=== PATIENT | female | born 1990 | race Caucasian/White ===

== ENCOUNTER 2021-07-12 17:11 | Outpatient (REF) | payer MEDICAID, SELFPAY ==
--- NOTE | ~2021-07-12 | XR_ITS ---
EXAMINATION: XR CHEST CLINICAL INFORMATION: Flu COMPARISON: None TECHNIQUE: 2 views of the chest were obtained. FINDINGS: No significant abnormality is noted involving the heart, lungs, mediastinum, bony thorax or soft tissues. XR/XR chest 2V IMPRESSION: Unremarkable examination.
== END 2021-07-12 17:12 | disposition home or self-care (01) ==
LOC: HO.XRAY 17:11
PROVIDERS: Absent Provider Internal Medicine; PCP Internal Medicine; Visit Provider Internal Medicine
DX: J11.1 Influenza due to unidentified influenza virus with other respiratory manifestations (principal)
CPT/HCPCS: 71046

== ENCOUNTER 2023-04-03 19:42 | Outpatient (REF) | payer MEDICAID, SELFPAY | END 2023-04-03 19:43 | disposition home or self-care (01) | LOC: HO.HHCLNP 19:42 | PROVIDERS: Visit Provider Emergency Medicine | DX: L02.01 Cutaneous abscess of face (principal) | CPT/HCPCS: 87070; 87205 ==

== ENCOUNTER 2023-04-06 12:50 | Outpatient (AMB) | payer MEDICAID, SELFPAY ==
--- NOTE | 2023-04-06 13:05 | A.OFFVIS_ITS ---
Intake Vital Signs 04/06/23 13:15 Height 5 ft 5 in Weight 150 lb 8 oz BMI 25.0 BP 130/77 Blood Pressure Location Lt brachial Position Sitting Pulse 101 H Intake Visit Reasons: abscess external right cheek Intake Note: went to ED at [facility] 03/30/23, then went to [facility] and had a culture done, still has not received the results, states wound has gone down compare to before, pain radiates to the ear, currently on antibiotics Industrial Engineering Analyst Required: Yes Accompanied by: Self / Same As Patient Allergies seafood Allergy (Unknown, Uncoded 04/06/23 13:12) Swelling Medication List - Last Reconciled 04/06/23 by Iron Arellano MD atenolol 50 mg PO QAM blood sugar diagnostic (FreeStyle Lite Strips) As directed doxycycline hyclate 100 mg PO BID glipizide ER 5 mg PO QAM ibuprofen 600 mg PO Q8H lancets (FreeStyle Lancets) As directed lisinopril 20 mg PO QAM PNV,calcium [id number] acid 27 mg iron- 1 mg ( Vitamins Plus Low Iron) 1 tab PO DAILY simvastatin 40 mg PO BEDTIME HPI abscess external right cheek 2 HPI Details 32F referred for an abscess on the right cheek. She says she had an area of pain and swelling on the right cheek towards the ear last week. She was started on oral antibiotics. This eventually drained spontaneously. Cultures were done last Thursday and she was referred to me to have this checked for possible I&D or excision She says that she feels much better. She denies any drainage anymore no significant pain. She says she is still on oral antibiotics. She admits to being a diabetic but says she has good blood sugar control. [facility] Medical History (Updated 04/06/23 @ 13:59 by Iron Arellano MD) Abscess of right external cheek Hypertension Diabetes mellitus Social History (Updated 04/06/23 @ 13:14 by MELISSA Brooks) Alcohol intake: never Patient Tobacco Use Status: Never used Tobacco Review of Systems Const Denies chills and Denies fever(s) Card Denies chest pain, Denies dyspnea and Denies dyspnea on exertion Resp Denies cough, Denies dyspnea and Denies dyspnea on exertion GI Denies hematochezia and Denies change in bowel habits Denies hematuria Musc Denies back pain and Denies limited range of motion Neuro Denies focal weakness and Denies convulsions Psych Denies depression and Denies mood swings Physical Exam Vital Signs: Last Vital Signs Pulse 101 H 04/06/23 13:15 BP 130/77 04/06/23 13:15 BMI result Body Mass Index 25.0 Const General: comfortable and no acute distress Orientation/consciousness: patient oriented x3 HEENT Other: On the right cheek near the auricular area is note of small induration, with no fluctuance, no tenderness, no cellulitis, no active discharge Neck Neck: Yes no lymphadenopathy Resp Auscultation: clear to auscultation bilaterally Cardio Rhythm: regular rhythm GI Palpation (GI): Soft to palpation, nontender and no guarding Neuro General: patient oriented x3 Assessment & Plan Assessment & Plan (1) Abscess of right external cheek: Code(s): L02.01 - Cutaneous abscess of face Plan: She had an abscess on the right cheek that appears to have had drained spontaneously. Currently, there is no significant drainage or fluctuance. There is very minimal residual induration She is still on antibiotics. I told her to complete this course. I instructed to do warm compresses to the area. I did tell her that if she has recurrence or worsening, she should come back to the office to be re-evaluated for possible I&D. She is comfortable with the plan. Coding Level of Care Code New Pt Level 3 (78145) Diagnoses Abscess of right external cheek L02.01
[2023-04-06 13:15] VITALS: BP 130/77; PULSE 101; BMI 25.0
== END 2023-04-06 13:45 | disposition home or self-care (01) ==
PROVIDERS: PCP Internal Medicine; Referring Provider Internal Medicine; Visit Provider Surgery
DX: L02.01 Cutaneous abscess of face (principal)
CPT/HCPCS: 99203

== ENCOUNTER → 2023-04-06 12:50 | Outpatient (BNVA) | payer MEDICAID, SELFPAY | PROVIDERS: PCP Internal Medicine; Referring Provider Internal Medicine; Visit Provider Surgery | DX: L02.01 Cutaneous abscess of face (principal); Z79.2 Long term (current) use of antibiotics | CPT/HCPCS: 99202 ==

== ENCOUNTER 2024-02-12 16:19 | Emergency (ER) | payer MEDICAID, SELFPAY ==
--- NOTE | 2024-02-12 | ECG_ITS ---
Test Reason : CHEST PAIN Blood Pressure : / mmHG Vent. Rate : 090 BPM Atrial Rate : 090 BPM P-R Int : 146 ms QRS Dur : 080 ms QT Int : 342 ms P-R-T Axes : 042 030 -01 degrees QTc Int : 418 ms Normal sinus rhythm Cannot rule out Anterior infarct , age undetermined ; could be related to body habitus and lead placement Abnormal ECG No previous ECGs available Referred By: Generic ED Physician Electronically Signed By:MADDISON AUGUSTE
[2024-02-12 16:33] VITALS: BP 134/74; BP 145/92; PULSE 115; PULSE 92; RESP 15; TEMP 36.6; O2SAT 100; O2SAT 99; BMI 27.0
--- NOTE | 2024-02-12 17:04 | ED_ITS ---
HPI - Chest Pain General Chief Complaint: Chest Pain Stated Complaint: CP Time Seen by Provider: 02/12/24 16:24 Source: patient, RN notes reviewed and old records reviewed Mode of arrival: ambulatory Limitations: no limitations History of Present Illness ED Provider: Adan MAGAÑA narrative: 33-year-old female with past medical history significant for hypertension, diabetes presents for evaluation of left-sided chest pain. Patient reports that she has had a dull left-sided chest pain for the last 3 weeks. The pain tends to be worse when she wakes up in the morning Currently her pain is dull, 6/10 Her pain is better with rest and worse with movement. She describes the pain as a ?soreness. ? Denies any fevers, chills, cough, shortness of breath, palpitations Denies any leg swelling. No other complaints or concerns at this time Related Data Home Medications ?Medication ?Instructions ?Recorded ?Confirmed atenolol 50 mg tablet 50 mg PO QAM 04/06/23 04/06/23 blood sugar diagnostic (FreeStyle #10 ea 04/06/23 04/06/23 Lite Strips) doxycycline hyclate 100 mg capsule 100 mg PO BID 04/06/23 04/06/23 glipizide 5 mg tablet, extended 5 mg PO QAM 04/06/23 04/06/23 release 24 hr ibuprofen 600 mg tablet 600 mg PO Q8H 04/06/23 04/06/23 lancets 28 gauge (FreeStyle #100 ea 04/06/23 04/06/23 Lancets) lisinopril 20 mg tablet 20 mg PO QAM 04/06/23 04/06/23 vitamin with calcium 1 tab PO DAILY 04/06/23 04/06/23 no.72-iron 27 mg-folic acid 1 mg tablet ( Vitamins Plus Low Iron) simvastatin 40 mg tablet 40 mg PO BEDTIME 04/06/23 04/06/23 Allergies Allergy/AdvReac Type Severity Reaction Status Date / Time seafood Allergy Unknown Swelling Uncoded 02/12/24 16:36 Review of Systems 2 Constitutional: Constitutional: Denies body ache(s), Denies chills, Denies fever(s) and Denies headache(s) Eyes: Eyes: Denies blurry vision ENT: Denies headache(s) Cardiovascular: Cardiovascular: Reports chest pain, Reports chest pain at rest, Reports chest pain with activity and Denies dyspnea Respiratory: Respiratory: Denies cough and Denies dyspnea Gastrointestinal: Gastrointestinal: Denies abdominal pain, Denies nausea and Denies vomiting Musculoskeletal: Musculoskeletal: Denies back pain Integumentary/Breasts: Skin/Breast: Denies rash Neurologic: Denies headache(s) [facility] Past Medical History Medical History (Updated 02/12/24 @ 17:45 by Toney Arellano) Abscess of right external cheek Hypertension Diabetes mellitus Social History Social History (Updated 04/06/23 @ 13:14 by MELISSA Brooks) Alcohol intake: never Patient Tobacco Use Status: Never used Tobacco Advance Directives: No Advance Directives Information Provided: No Do you have a plan to hurt others: No Plan Patient : No Physical Exam 2 Vital Signs: Vital Signs: Last Vital Signs Temp 97.9 F 02/12/24 16:33 Pulse 92 02/12/24 16:33 Resp 15 02/12/24 16:33 BP 134/74 02/12/24 16:33 Pulse Ox 100 02/12/24 16:33 O2 Del Method Room Air 02/12/24 16:33 BMI result Body Mass Index 27.0 Const: General: healthy appearing, comfortable, no acute distress, alert and awake Nutritional Appearance: well nourished Orientation/consciousness: p atient oriented x3 HEENT: Head: Yes normocephalic and Yes atraumatic Throat: Yes posterior oropharynx normal Eyes: Eyelids: Yes eyelids normal Conjunctivae: conjunctivae normal S clerae: sclerae normal Corneas: corneas normal Pupils: Equal, round and reactive pupils present EOM: EOMs intact bilaterally Neck: Neck: Yes full ROM Chest: Other: There is some tenderness palpation left chest wall without crepitus Resp: Effort & Inspection: normal respiratory effort, able to speak in complete sentences, no audible wheezes and not labored Auscultation: clear to auscultation bilaterally Cardio: Rate: regular rate Rhythm: regular rhythm GI: Inspection: No distended Palpation (GI): Soft to palpation, not firm, nontender, no guarding and not rigid Skin: General skin exam: elasticity normal Neuro: General: patient oriented x3 Cranial nerves: Yes Equal, round and reactive pupils present and Yes Bilaterally intact EOM present Cognition (Neuro): normal cognition Course Reevaluation(s) Reevaluation #1: Patient's heart score is a 1 for risk factors only. Her workup is negative, she rules out for ACS. The patient is stable for discharge at this time Time: 17:44 Medical Decision Making Medical Decision Making [facility] Narrative: 33-year-old female presents for evaluation of chest pain. Her risk factors for ACS include hypertension, diabetes though she is young. EKG is nonischemic. Plan for labs. She has no respiratory symptoms, lungs are clear to auscultation, vital signs are stable. I doubt pulmonary cause of her chest pain. Given the her pain has been present for 3 weeks, it is likely atypical chest pain Differential Diagnosis Differential Diagnoses: The differential diagnosis associated with the presentation includes Chest pain Chest wall pain Costochondritis ACS Lab Data [facility] Lab Attestation statement: I reviewed the patient's lab results. No leukocytosis or anemia. Normal platelet count. No electrolyte abnormalities. Troponin undetectable. The patient is not 02/12/24 17:09 02/12/24 17:09 Labs: Lab Results 02/12/24 Range/Units 17:09 WBC 9.8 (4.8-10.8) X10*3/uL RBC 4.89 (4.20-5.50) X10*6/uL Hgb 13.9 (12.0-16.0) g/dl Hct 41.6 (37.0-47.0) % MCV 85.1 (80.0-98.0) fL MCH 28.4 (27.0-33.0) pg MCHC 33.4 (31.0-35.0) g/dl RDW 12.3 (11.0-16.0) % Plt Count 350 (160-400) X10*3/uL MPV 9.3 L (9.4-12.3) fL Immature Gran % (Auto) 0.4 (0.0-0.4) % Neut % (Auto) 57.3 (45-73) % Lymph % (Auto) 33.3 (20-40) % [place] % (Auto) 5.7 (2-11) % Eos % (Auto) 2.6 (0-4) % Baso % (Auto) 0.7 (0-2) % Lymph # (Auto) 3.3 (1.2-4.9) X10*3/uL [place] # (Auto) 0.6 (0.1-1.2) X10*3/uL Eos # (Auto) 0.3 (0.0-0.4) X10*3/uL Baso # (Auto) 0.1 (0.0-0.2) X10*3/uL Abs Immat Gran (auto) 0.04 H (0.00-0.03) X10*3/uL Absolute Neuts (auto) 5.6 (2.0-8.3) x10*3/uL Absolute Nucleated RBC 0.000 (0.0-0.012) X10*3/uL Nucleated RBC % (auto) 0.0 (0.0-0.2) /100WBC PT 11.6 (10.9-12.4) SEC INR 1.0 (0.9-1.1) Sodium 141 (135-145) mmol/L Potassium 3.4 (3.3-5.1) mmol/L Chloride 106 (96-108) mmol/L Carbon Dioxide 22 (22-29) mmol/L Anion Gap 16 (12-20) BUN 9 (9-16) mg/dL Creatinine 0.66 (0.5-1.4) mg/dL Estim Creat Clear Calc 120.5 Estimated GFR > 60 Random Glucose 126 H (60-115) mg/dL Calcium 9.4 (8.4-10.2) mg/dL Total Bilirubin 0.3 (0.0-1.0) mg/dL AST 17 (5-31) U/L ALT 24 (0-31) U/L Alkaline Phosphatase 46 (39-117) U/L Troponin I High Sens < 2.7 (<3.5-17.0) ng/L Total Protein 7.9 (6.5-8.0) g/dL Albumin 4.4 (3.5-5.0) g/dL Lipase 29 (8-78) U/L Beta HCG, Quant < 2 mIU/mL Independent Interpretation I performed an independent interpretation of an: EKG Interpretation: Normal sinus rhythm with a rate of [address] segment elevations or depressions. Discharge Plan Discharge Clinical Impression: Atypical chest pain Patient Disposition: Home, Self-Care Instructions: Chest Pain (ED) Additional Instructions: Your workup in the ER today was reassuring. This includes your blood work, your EKG. You may use ibuprofen/Tylenol as needed for any further pain. Follow-up with your primary doctor, return for new or worsening symptoms Prescriptions: No Action doxycycline hyclate 100 mg capsule 100 mg PO BID glipizide 5 mg tablet extended release 24hr 5 mg PO QAM Vitamin Plus Low Iron 27 mg iron- 1 mg tablet 1 tab PO DAILY atenolol 50 mg tablet 50 mg PO QAM simvastatin 40 mg tablet 40 mg PO BEDTIME lisinopril 20 mg tablet 20 mg PO QAM (DME) FreeStyle Lite Strips Strip See Rx Instructions .ROUTE BID Qty: 10 Rx Instructions: As directed (DME) lancets [FreeStyle Lancets] 28 gauge misc See Rx Instructions .ROUTE BID Qty: 100 Rx Instructions: As directed ibuprofen 600 mg tablet 600 mg PO Q8H Print Language: Swedish
[2024-02-12 17:17] LABS: MANUAL DIFF FLAG NO
[2024-02-12 17:30] LABS: Basophils Absolute Auto 0.1 X10*3/uL (0.0-0.2); Basophils Percent Auto 0.7 % (0-2); Eosinophils Absolute Auto 0.3 X10*3/uL (0.0-0.4); Eosinophils Percent Auto 2.6 % (0-4); Hematocrit 41.6 % (37.0-47.0); Hemoglobin 13.9 g/dl (12.0-16.0); Imm Gran Abs Auto 0.04 X10*3/uL (0.00-0.03); Imm Gran Pct Auto 0.4 % (0.0-0.4); Lymphocytes Absolute Auto 3.3 X10*3/uL (1.2-4.9); Lymphocytes Percent Auto 33.3 % (20-40); Mean Corpuscular HGB Conc 33.4 g/dl (31.0-35.0); Mean Corpuscular Hemoglobin 28.4 pg (27.0-33.0); Mean Corpuscular Volume 85.1 fL (80.0-98.0); Mean Platelet Volume 9.3 fL (9.4-12.3); Monocytes Absolute Auto 0.6 X10*3/uL (0.1-1.2); Monocytes Percent Auto 5.7 % (2-11); Neutrophils Absolute Auto 5.6 x10*3/uL (2.0-8.3); Neutrophils Percent Auto 57.3 % (45-73); Platelet Count 350 X10*3/uL (160-400); Red Blood Count 4.89 X10*6/uL (4.20-5.50); Red Cell Distribution Width 12.3 % (11.0-16.0); White Blood Count 9.8 X10*3/uL (4.8-10.8)
[2024-02-12 17:34] LABS: Alanine Aminotransferase 24 U/L (0-31); Albumin Level 4.4 g/dL (3.5-5.0); Alkaline Phosphatase 46 U/L (39-117); Anion Gap 16 (12-20); Aspartate Amino Transferase 17 U/L (5-31); Bilirubin Total 0.3 mg/dL (0.0-1.0); Blood Urea Nitrogen 9 mg/dL (9-16); Calcium 9.4 mg/dL (8.4-10.2); Carbon Dioxide 22 mmol/L (22-29); Chloride 106 mmol/L (96-108); Creatinine Clr Calc Pharmacy 120.5; Estimated Glomerular Filt Rate > 60; Glucose Random 126 mg/dL (60-115); Lipase 29 U/L (8-78); Potassium 3.4 mmol/L (3.3-5.1); Sodium 141 mmol/L (135-145); Total Protein 7.9 g/dL (6.5-8.0)
[2024-02-12 17:38] LABS: Prothrombin Time 11.6 SEC (10.9-12.4)
[2024-02-12 17:42] LABS: HCG Quantitative < 2 mIU/mL; Troponin-I High Sensitivity < 2.7 ng/L (<3.5-17.0)
[2024-02-12 17:55] VITALS: BP 135/79; PULSE 88; RESP 18; TEMP 36.4; O2SAT 100
== END 2024-02-12 17:56 | disposition home or self-care (01) ==
PROVIDERS: Physician Assistant; Emergency Provider Emergency Medicine; PCP Internal Medicine
DX: R07.89 Other chest pain (principal); I10 Essential (primary) hypertension; E11.9 Type 2 diabetes mellitus without complications; Z79.899 Other long term (current) drug therapy
CPT/HCPCS: 36415; 80053; 83690; 84484; 84702; 85025; 85610; 93005; 99283; 99285

== ENCOUNTER → 2024-02-12 16:32 | Outpatient (BNV) | payer MEDICAID, SELFPAY | PROVIDERS: Emergency Provider Emergency Medicine; PCP Internal Medicine; Visit Provider Internal Medicine | DX: R94.31 Abnormal electrocardiogram [ECG] [EKG] (principal) | CPT/HCPCS: 93010 ==

== ENCOUNTER 2024-04-11 13:33 | Outpatient (REF) | payer MEDICAID, SELFPAY ==
[2024-04-11 14:47] LABS: Alanine Aminotransferase 26 U/L (0-31); Albumin Level 4.3 g/dL (3.5-5.0); Alkaline Phosphatase 53 U/L (39-117); Anion Gap 13 (12-20); Aspartate Amino Transferase 25 U/L (5-31); Bilirubin Total 0.3 mg/dL (0.0-1.0); Blood Urea Nitrogen 8 mg/dL (9-16); Calcium 9.7 mg/dL (8.4-10.2); Carbon Dioxide 25 mmol/L (22-29); Chloride 104 mmol/L (96-108); Cholesterol 240 mg/dL (<200); Estimated Glomerular Filt Rate > 60; Glucose Random 147 mg/dL (60-115); HDL Cholesterol 47 mg/dL (>40); LDL Cholesterol Calculated 143 mg/dL (<100); Sodium 138 mmol/L (135-145); Triglycerides 251 mg/dL (<150)
== END 2024-04-11 13:34 | disposition home or self-care (01) ==
LOC: HO.CHCLDS 13:33
PROVIDERS: Visit Provider Internal Medicine
DX: I10 Essential (primary) hypertension (principal); E08.59 Diabetes mellitus due to underlying condition with other circulatory complications
CPT/HCPCS: 36415; 80053; 80061

== ENCOUNTER 2024-11-14 10:30 | Outpatient (REF) | payer MEDICAID, SELFPAY ==
--- OUTSIDE RECORDS SUMMARY | 2024-11-14 11:33 | XMS_ITS | Clinical Summary ---
Author Organization [facility] Address [address] [place] [address] Phone Care Team Providers Care Registered Nurse Maternity Name Role Phone Physician, Pcp Unknown Primary Care Provider Nika vailable Allergies Active Allergy Reactions Criticality Noted Date Comments Fish Containing Products 04/21/2024 Fish Derived 04/21/2024 Pneumococcal Vaccine Headache,Rash,Nause a And Vomiting Low 07/31/2023 3 days post vaccine, pt came to [facility] with localized swelling, rash over injection site and itchiness She reported n/v and headache. No resp s/s Shellfish Containing Products 04/21/2024 Medications methocarbamoL (ROBAXIN) 750 mg tablet Take 1 tablet (750 mg total) by mouth 4 (four) times a day. 12 each 10/17/2024 Active cephalexin (KEFLEX) 500 mg capsule Take 1 capsule (500 mg total) by mouth 2 (two) times a day for 7 days. 14 each 10/17/2024 10/25/19 25 Active Problems No known active problems Encounters Date Type Department Care Team Description 10/17/2024 7:13 AM EDT - 10/17/2024 9:37 AM EDT Emergency [facility] Emergency [address] [place] [address] Strain of lumbar region, initial encounter (Primary Dx); Urinary tract infection with hematuria, site unspecified Discharge Disposition: Home or Self Care from Last 3 Months Immunizations Name Administration Dates Next Due Tdap Tetanus diptheria acell ular pertussis (Boostrix; Adacel) 7yo and older 04/22/2024 Medical History Medical History Date Comments Diabetes ([facility] V24, [facility] V28) Hypertension Social History Tobacco Use Types Packs/Day Years Used Date Smoking Tobacco: Never Assessed Comments Unknown Sex and Gender Information Value Date Recorded Sex Assigned at Not on file Legal Sex Female 4:36 AM EST Gender Identity Not on file Sexual Orientation Not on file Obstetrics History Last Filed Vital Signs Vital Sign Reading Time Taken Comments Blood Pressure 120/80 10/17/2024 6:31 AM EDT Pulse 82 10/17/2024 6:31 AM EDT Temperature 37 C (98.6 F) 10/17/2024 6:31 AM EDT Respiratory Rate 18 10/17/2024 6:31 AM EDT Oxygen Saturation 98% 10/17/2024 6:31 AM EDT Inhaled Oxygen Concentration - - Weight 72.6 kg (160 lb) 10/16/2024 11:31 PM EDT Height 165.1 cm (5' 5 ) 10/16/2024 11:31 PM EDT Body Mass Index 26.63 10/16/2024 11:31 PM EDT Plan of Treatment Health Maintenance Due Date Last Done Comments Diabetes: Annual Foot Exam 1999 Diabetes: Annual Retina Eye Exam 1999 Hepatitis A Vaccines (1 of 2 - Risk 2-dose series) 2008 Hepatitis B Vaccines (1 of 3 - 19+ 3-dose series) 2008 Cervical Cancer Screening: P ap Smear 2010 COVID-19 Vaccine (2023-2 5 season) 2023 Diabetes: Annual Urine Albumin-Creatinine Ratio (uACR) 04/22/2024 HIV Screening 04/22/2024 Hepatitis C Screening 04/22/2024 Social Influencers of Health Screening 04/22/2024 Depression Screening 04/27/2024 Influenza Vaccine (#1) 2024 6, 01/27/2013, 03/24/2012 Diabetes: Blood Sugar Contro l Test (HGBA1C) 03/17/2025 09/14/2024, 07/28/2023 Diabetes: Annual GFR (Glomerular Filtration Rate) 10/17/2025 10/17/2024, 04/11/2024 Hypertension/CHF/CAD Annual BMP Blood Test 10/17/2025 10/17/2024, 04/11/2024 Cholesterol Screening (Lipid Panel) 04/11/2029 04/11/2024 DTaP,Tdap,and Td Vaccines (3 - Td or Tdap) 04/22/2034 04/22/2024, 01/27/2013 Pneumococcal Vaccine: Pediatrics (0 to 5 Years) and At-Risk Patients (6 to 49 Years) Completed 07/28/2023 HIB Vaccines Aged Out No longer eligi ble based on patient's age to complete this topic HPV Vaccines Aged Out No longer eligi ble based on patient's age to complete this topic IPV Vaccines Aged Out No longer eligi ble based on patient's age to complete this topic MMR Vaccines Aged Out No longer eligi ble based on patient's age to complete this topic Meningococcal ACWY Vaccine Aged Out N o longer eligible based on patient's age to complete this topic Meningococcal B Vaccine Aged Out No l onger eligible based on patient's age to complete this topic RSV Immunization Patients Under 20 months Aged Out No longer eligible b ased on patient's age to complete this topic Varicella Vaccines Aged Out No longer eligible based on patient's age to complete this topic Procedures Procedure Name Priority Date/Time Associated Diagnosis Comments LINDSEY URINE CULTURE TUBE STAT 10/17/2024 7:22 AM EDT URINALYSIS WITH REFLEX MICROSCOPIC AND CULTURE STAT 10/17/2024 7:22 AM EDT URINALYSIS WITH REFLEX MICROSCOPIC AND CULTURE STAT 10/17/2024 7:22 AM EDT CULTURE URINE STAT 10/17/2024 7:22 AM EDT CBC WITH AUTO DIFFERENTIAL STAT 10/17/2024 1:26 AM EDT COMPREHENSIVE METABOLIC PANEL STAT 10/17/2024 1:26 AM EDT CBC AND DIFFERENTIAL STAT 10/17/2024 1:26 AM EDT from Last 3 Months Results * (ABNORMAL) Urinalysis with reflex microscopic and culture (10/17/2024 7:22 AM EDT) Specific [place] Urine 1.027 1.003 - 1.030 LAB URINALYSIS - AUTOMATED METHOD 10/17/2024 8:22 AM [facility] pH, Urine 5.5 5.0 - 8.0 pH LAB URINALYSIS - AUTOMATED METHOD 10/17/2024 8:22 AM [facility] Leukocytes, Urine Small(A) Negative LAB URINALYSIS - AUTOMATED METHOD 10/17/2024 8:22 AM [facility] Nitrite, Urine Positive(A) Negative LAB URINALYSIS - AUTOMATED METHOD 10/17/2024 8:22 AM [facility] Protein, Urine Negative <=Trace mg/dL LAB URINALYSIS - AUTOMATED METHOD 10/17/2024 8:22 AM [facility] Glucose, Urine Negative Negative mg/dL LAB URINALYSIS - AUTOMATED METHOD 10/17/2024 8:22 AM [facility] Ketones, Urine Trace(A) Negative mg/dL LAB URINALYSIS - AUTOMATED METHOD 10/17/2024 8:22 AM [facility] Urobilinogen , Urine 0.2 0.2 - 1.0 mg/dL LAB URINALYSIS - AUTOMATED METHOD 10/17/2024 8:22 AM [facility] Bilirubin, Urine Negative Negative LAB URINALYSIS - AUTOMATED METHOD 10/17/2024 8:22 AM [facility] Blood, Urine Negative Negative LAB URINALYSIS - AUTOMATED METHOD 10/17/2024 8:22 AM [facility] RBC, Urine 8.9(H) 0 - 4 /HPF LAB URINALYSIS - AUTOMATED METHOD 10/17/2024 8:22 AM [facility] WBC, Urine 4.0 0 - 4 /HPF LAB URINALYSIS - AUTOMATED METHOD 10/17/2024 8:22 AM [facility] Squamous Epithelial, Urine 50 0 - 60 /LPF LAB URINALYSIS - AUTOMATED METHOD 10/17/2024 8:22 AM [facility] Bacteria, Urine Many(A) Negative /HPF LAB URINALYSIS - AUTOMATED METHOD 10/17/2024 8:22 AM EDT [facility] Hyaline Casts, Urine 3.0 0 - 3 /LPF LAB URINALYSIS - AUTOMATED METHOD 10/17/2024 8:22 AM EDT [facility] Urine Urine specimen obtained by clean catch procedure / Unknown Non-blood Collection / Unknown 10/17/2024 7:22 AM EDT 10/17/2024 7:44 AM EDT Maxioneil Kilpatrick MD LAB URINE ORDERABLES Final Resu lt Performing Organization Address City/[facility]/ZIP Co de Phone Number [facility] [address] [place] [address], [place] [phone] * Lindsey urine culture tube (10/17/2024 7:22 AM EDT) Extra Tube Hold for add-ons. 10/17/2024 9:01 AM EDT [facility] Comment:Auto resulted. Urine Urine specimen obtained by clean catch procedure / Unknown Non-blood Collection / Unknown 10/17/2024 7:22 AM EDT 10/17/2024 7:44 AM EDT Maxi Kilpatrick MD LAB URINE ORDERABLES Final Resu lt [facility] [address] [place] [address], [place] [phone] * (ABNORMAL) Culture urine (10/17/2024 7:22 AM EDT) Culture, Urine >100,000 CFU/mL Escherichia coli(A) SUNDEEP 10/19/2024 9:42 AM EDT [facility] Urine Urine specimen obtained by clean catch procedure / Unknown Non-blood Collection / Unknown 10/17/2024 7:22 AM EDT 10/17/2024 8:22 AM EDT Narrative Organism Antibiotic Method Susceptibility Escherichia coli Amoxicillin/Clavulanate SUNDEEP 4 ug/ml: Susceptible Escherichia coli Ampicillin/Sulbactam SUNDEEP 4 ug/ml: Susceptible Escherichia coli Piperacillin/Tazobactam SUNDEEP <=4 ug/ml: Susceptible Escherichia coli Cefazolin (Urine) SUNDEEP <=1 ug/ml: Susceptible Escherichia coli Cefoxitin SUNDEEP <=4 ug/ml: Susceptible Escherichia coli Ceftazidime SUNDEEP <=0.5 ug/ml: Susceptible Escherichia coli Ceftriaxone SUNDEEP <=0.25 ug/ml: Susceptible Escherichia coli Cefepime SUNDEEP <=0.12 ug/ml: Susceptible Escherichia coli Meropenem SUNDEEP <=0.25 ug/ml: Susceptible Escherichia coli Amikacin SUNDEEP 2 ug/ml: Susceptible Escherichia coli Gentamicin SUNDEPE <=1 ug/ml: Susceptible Escherichia coli Ciprofloxacin SUNDEEP <=0.06 ug/ml: Susceptible Escherichia coli Levofloxacin SUNDEEP <=0.12 ug/ml: Susceptible Escherichia coli Nitrofurantoin SUNDEEP <=16 ug/ml: Susceptible Escherichia coli Trimethoprim/Sulfamethoxazole SUNDEEP <=20 ug/ml: Susceptible Maxi Kilpatrick MD LAB MICROBIOLOGY - GENERAL ORDE [facility] Final Result [facility] [address] [place] [address], * (ABNORMAL) CBC auto differential (10/17/2024 1:26 AM EDT) WBC 7.7 4.8 - 10.8 K/mcL LAB HEMETOLOGY METHOD 10/17/2024 1:52 AM EDT [facility] RBC 5.00(H) 3.80 - 4.80 M/mcL LAB HEMETOLOGY METHOD 10/17/2024 1:52 AM EDT [facility] Hemoglobin 14.3 11.5 - 16.0 g/dL LAB HEMETOLOGY METHOD 10/17/2024 1:52 AM EDT [facility] Hematocrit 44.1 35.0 - 47.0 % LAB HEMETOLOGY METHOD 10/17/2024 1:52 AM [facility] MCV 87.5 79.0 - 98.0 FL LAB HEMETOLOGY METHOD 10/17/2024 1:52 AM [facility] MCH 28.4 27.0 - 32.0 pcg LAB HEMETOLOGY METHOD 10/17/2024 1:52 AM [facility] MCHC 32.4 32.0 - 37.0 g/dL LAB HEMETOLOGY METHOD 10/17/2024 1:52 AM [facility] RDW 11.9 11.0 - 15.0 % LAB HEMETOLOGY METHOD 10/17/2024 1:52 AM [facility] Platelets 306 130 - 400 K/mcL LAB HEMETOLOGY METHOD 10/17/2024 1:52 AM [facility] MPV 9.3 7.0 - 11.0 FL LAB HEMETOLOGY METHOD 10/17/2024 1:52 AM [facility] NRBC 0.0 <1.0 % LAB HEMETOLOGY METHOD 10/17/2024 1:52 AM [facility] NRBC Absolute 0.00 <0.10 K/mcL LAB HEMETOLOGY METHOD 10/17/2024 1:52 AM [facility] Neutrophils Relative 55.6 % LAB HEMETOLOGY METHOD 10/17/2024 1:52 AM [facility] Lymphocytes Relative 33.7 % LAB HEMETOLOGY METHOD 10/17/2024 1:52 AM [facility] Monocytes Relative 6.6 % LAB HEMETOLOGY METHOD 10/17/2024 1:52 AM [facility] Eosinophils Relative 3.1 % LAB HEMETOLOGY METHOD 10/17/2024 1:52 AM [facility] Basophils Relative 0.6 % LAB HEMETOLOGY METHOD 10/17/2024 1:52 AM EDT [facility] Immature Granulocytes Relative 0.4 % LAB HEMETOLOGY METHOD 10/17/2024 1:52 AM EDT [facility] Neutrophils Absolute 4.28 1.50 - 7.00 K/mcL LAB HEMETOLOGY METHOD 10/17/2024 1:52 AM EDT [facility] Lymphocytes Absolute 2.60 1.00 - 5.00 K/mcL LAB HEMETOLOGY METHOD 10/17/2024 1:52 AM EDT [facility] Monocytes Absolute 0.51 0.20 - 1.00 K/mcL LAB HEMETOLOGY METHOD 10/17/2024 1:52 AM EDT [facility] Eosinophils Absolute 0.24 0.00 - 0.50 K/mcL LAB HEMETOLOGY METHOD 10/17/2024 1:52 AM EDT [facility] Basophils Absolute 0.05 0.00 - 0.20 K/mcL LAB HEMETOLOGY METHOD 10/17/2024 1:52 AM EDT [facility] Immature Granulocytes Absolute 0.03 0.00 - 0.03 K/mcL LAB HEMETOLOGY METHOD 10/17/2024 1:52 AM EDT [facility] Blood Venous blood specimen / Unknown Venipuncture / Unknown 10/17/2024 1:26 AM EDT 10/17/2024 1:46 AM EDT us Maxioneil Kilpatrick MD LAB BLOOD ORDERABLES Final Resu lt [facility] [address] [place] [address], * (ABNORMAL) Comprehensive metabolic panel (10/17/2024 1:26 AM EDT) Sodium 141 133 - 145 mmol/L LAB CHEMISTRY METHOD 10/17/2024 2:12 AM [facility] Potassium 4.2 3.5 - 5.5 mmol/L LAB CHEMISTRY METHOD 10/17/2024 2:12 AM [facility] Chloride 108 96 - 110 mmol/L LAB CHEMISTRY METHOD 10/17/2024 2:12 AM [facility] CO2 26 21 - 32 mmol/L LAB CHEMISTRY METHOD 10/17/2024 2:12 AM [facility] Anion Gap 7 3 - 11 LAB CHEMISTRY METHOD 10/17/2024 2:12 AM [facility] Glucose 137(H) 70 - 100 mg/dL LAB CHEMISTRY METHOD 10/17/2024 2:12 AM [facility] BUN 9 5 - 25 mg/dL LAB CHEMISTRY METHOD 10/17/2024 2:12 AM [facility] Creatinine 0.60 0.50 - 1.10 mg/dL LAB CHEMISTRY METHOD 10/17/2024 2:12 AM [facility] eGFR 120 >=60 mL/min/1. 73m2 LAB CHEMISTRY METHOD 10/17/2024 2:12 AM [facility] Comment:Calculation based on the Chronic Kidney Disease Epidemiology Collaboration (CKD-EPI) equation refit without adjustment for race. BUN/Creatinine Ratio 15.0 LAB CHEMISTRY METHOD 10/17/2024 2:12 AM [facility] Calcium 9.1 8.5 - 10.5 mg/dL LAB CHEMISTRY METHOD 10/17/2024 2:12 AM [facility] AST (SGOT) 19 10 - 42 unit/L LAB CHEMISTRY METHOD 10/17/2024 2:12 AM [facility] ALT (SGPT) 26 10 - 60 unit/L LAB CHEMISTRY METHOD 10/17/2024 2:12 AM [facility] Alkaline Phosphatase 56 42 - 121 unit/L LAB CHEMISTRY METHOD 10/17/2024 2:12 AM EDT [facility] Total Protein 7.5 6.0 - 8.0 g/dL LAB CHEMISTRY METHOD 10/17/2024 2:12 AM EDT [facility] Albumin 3.7 3.2 - 5.0 g/dL LAB CHEMISTRY METHOD 10/17/2024 2:12 AM T [facility] Total Bilirubin 0.2 0.0 - 1.4 mg/dL LAB CHEMISTRY METHOD 10/17/2024 2:12 AM EDT [facility] Blood Venous blood specimen / Unknown Venipuncture / Unknown 10/17/2024 1:26 AM EDT 10/17/2024 1:46 AM EDT [facility] Korey Kilpatrick MD LAB BLOOD ORDERABLES Final Resu lt [facility] [address] [place] [address], from Last 3 Months Insurance MEDICAID - [place] Care Teams Registered Nurse Maternity Relationship Specialty Start Date End Date Physician, Pcp Unknown PCP - General 04/22/24
--- OUTSIDE RECORDS SUMMARY | 2024-11-14 11:33 | XMS_ITS | Encounter Summary ---
Author Organization [employer] Address [address] [facility] [facility] [address] [place] [address] Care Team Providers Care Csw Name Role Phone Caridad Guajardo MD Primary Care Provider [phone] Germaine Ha PharmD Unavailable [phone] Reason for Visit * Reason Comments Med Refill Encounter Details Date Type Department Care Team (Late Contact Info) Description 05/04/2023 Refill [facility] [address], [place] [phone] Sara Rosario FNP Social History Tobacco Use Types Packs/Day Years Used Date Smoking Tobacco: Never Passive Smoke Exposure: Never Smokeless Tobacco: Never Alcohol Use Standard Drinks/Week Comments Never 0 (1 standard drink = 0.6 oz pur e alcohol) Comments Unknown Sex and Gender Information Value Date Recorded Sex Assigned at Female 02/24/2022 10:22 AM EDT Legal Sex Female 10:22 AM EDT Gender Identity Choose not to disclose 10:22 AM EDT Sexual Orientation Choose not to disclose 2021 10:22 AM EDT documented as of this encounter Plan of Treatment Upcoming Encounters Date Type Department Care Team (Late Contact Info) Description 12/01/2024 1:30 PM EDT Medication Management [facility] [address] [place] [address] Germaine Ha, PharmD [address], [place] [phone] 01/02/2025 2:30 PM EDT Office Visit [facility] [address] [place] [address] Caridad Guajardo MD [address] [place] [address] documented as of this encounter Visit Diagnoses Not on filedocumented in this encounter Care Teams Csw Relationship Specialty Start Date End Date Caridad Guajardo MD [address] [place] [phone] PCP - General Internal Medicine 05/27/13 Germaine Ha PharmD [address] [place] [phone] Pharmacist Internal Medicine 09/14/24 documented as of this encounter
[2024-11-14 14:24] LABS: Cholesterol 220 mg/dL (<200); HDL Cholesterol 39 mg/dL (>40); Triglycerides 355 mg/dL (<150)
== END 2024-11-14 10:31 | disposition home or self-care (01) ==
LOC: HO.CHCLDS 10:30
PROVIDERS: Visit Provider Internal Medicine
DX: E11.9 Type 2 diabetes mellitus without complications (principal)
CPT/HCPCS: 36415; 80061

== ENCOUNTER 2025-04-06 11:06 | Outpatient (REF) | payer MEDICAID, SELFPAY ==
[2025-04-06 15:26] LABS: Alanine Aminotransferase 38 U/L (0-31); Albumin Level 4.6 g/dL (3.5-5.0); Alkaline Phosphatase 57 U/L (39-117); Anion Gap 14 (12-20); Aspartate Amino Transferase 51 U/L (5-31); Blood Urea Nitrogen 10 mg/dL (9-16); Calcium 9.5 mg/dL (8.4-10.2); Carbon Dioxide 23 mmol/L (22-29); Chloride 105 mmol/L (96-108); Cholesterol 233 mg/dL (<200); Estimated Glomerular Filt Rate > 60; HDL Cholesterol 42 mg/dL (>40); Potassium 3.8 mmol/L (3.3-5.1); Sodium 138 mmol/L (135-145); Total Protein 8.3 g/dL (6.5-8.0); Triglycerides 354 mg/dL (<150)
[2025-04-06 15:31] LABS: Microalbum/Creatinine Ratio Ur 17.1 ug/mg cr (<30)
== END 2025-04-06 11:07 | disposition home or self-care (01) ==
LOC: HO.CHCLDS 11:06
PROVIDERS: Visit Provider Internal Medicine
DX: E11.649 Type 2 diabetes mellitus with hypoglycemia without coma (principal)
CPT/HCPCS: 36415; 80053; 80061; 82043; 82570